=== PATIENT | male | born 1950 | race Caucasian/White ===

== ENCOUNTER 2023-01-26 15:42 | Outpatient (CLI) | payer BC, SELFPAY ==
[2023-01-28 20:13] LABS: Sex Hormone Binding Globulin 59 nmol/L (19-76); Testosterone, Adult Male 58 ng/dL (300-720); Testosterone, Free Calculation 7 pg/mL (47-244); Testosterone, Percentage Free 1.2 % (1.6-2.9)
== END 2023-01-26 15:43 | disposition home or self-care (01) ==
PROVIDERS: PCP Internal Medicine; Visit Provider Internal Medicine
DX: C61 Malignant neoplasm of prostate (principal)
CPT/HCPCS: 36415; 84153; 84270; 84402; 84403

== ENCOUNTER 2023-03-12 14:03 | Outpatient (CLI) | payer BC, SELFPAY | END 2023-03-12 14:04 | disposition home or self-care (01) | PROVIDERS: PCP Family Medicine; Visit Provider Internal Medicine | DX: C61 Malignant neoplasm of prostate (principal) | CPT/HCPCS: 72195 ==